=== PATIENT | female | born 1990 | race Caucasian/White ===

== ENCOUNTER 2017-07-26 20:38 | Emergency (ER) | payer OTHER ==
[~2017-07-26] VITALS: Ht 177.8 cm; Wt 72.0 kg
[~2017-07-26 20:38] MED LIST: ALBUTEROL SULF8.5 GM IH; ATENOLOL25 MG PO; FLECAINIDE ACET50 MG PO; KENALOG,ARISTOC80 GM TP; LOPRESSOR25 MG PO; MOTRIN600 MG PO; POTASSIUM CHLO20 MEQ PO; SINGULAIR10 MG PO; XANAX0.25 MG PO; YAZ 28 TABLET1 EACH PO
[2017-07-26 21:28] LABS: HEMATOCRIT 34.5 % (36.0-46.0); HEMOGLOBIN 12.1 G/DL (11.9-15.5); MCH 30.9 PG (29.0-34.0); MCHC 35.1 G/DL (30.0-36.0); MCV 88.2 FL (83-99); PLATELET COUNT 240 K/uL (156-360); RBC DIS.WIDTH-CV 11.9 % (11.8-14.6); RED BLOOD COUNT 3.91 M/uL (3.80-5.20); WHITE BLOOD COUNT 6.4 K/uL (4.1-10.2)
[2017-07-26 21:46] LABS: CHLORIDE 108 mEq/L (99-109); POTASSIUM 3.4 mEq/L (3.7-5.4); SODIUM 138 mEq/L (136-147)
[2017-07-26 21:48] LABS: GLUCOSE 77 mg/dL (70-99)
[2017-07-26 21:52] LABS: CREATININE 0.6 mg/dL (0.6-1.3); GFR ESTIMATE (CALCULATED) > 59 mL/min/
[2017-07-26 21:53] LABS: UREA NITROGEN (BUN) 8 mg/dL (9-23)
[2017-07-26 22:44] LABS: QUANTITATIVE HCG < 4.0 MIU/ML
[2017-07-26] MEDS ORDERED: ALBUTEROL2.5 MG/3 M IH (22:49)
[2017-07-26] MEDS ORDERED: TESSALON PERLE100 MG PO (22:52)
[2017-07-26] MEDS ORDERED: XOPENEX1.25 MG/3 IH (22:57)
[2017-07-26 23:22] VITALS: BP 119/71
== END 2017-07-26 23:25 | disposition home or self-care (01) ==
LOC: EME 20:38
DX: J20.9 Acute bronchitis, unspecified (principal); J45.909 Unspecified asthma, uncomplicated; Z88.0 Allergy status to penicillin; Z88.1 Allergy status to other antibiotic agents
CPT/HCPCS: 71046; 80048; 84702; 85027; 93005; 94640